=== PATIENT | female | born 1945 | race Asian ===

== ENCOUNTER 2022-07-27 17:23 | Emergency (ER) | payer MEDICARE, OTHER ==
[~2022-07-27] VITALS: Ht 157.5 cm; Wt 59.0 kg
[2022-07-27] MEDS ORDERED: ONDANSETRON ODT 4 MG TAB PO ONE (19:00)
[2022-07-27] MEDS ORDERED: MORPHINE SULFATE 4 MG/ML SYR/VIAL IM ONE (19:00)
[2022-07-27] MEDS ORDERED: BACL10TA PO (19:42)
[2022-07-27 21:14] VITALS: BP 129/63
== END 2022-07-27 21:15 | disposition home or self-care (01) ==
LOC: EDBD 17:23 → ER 17:23
DX: S00.83XA Contusion of other part of head, initial encounter (principal); W18.39XA Other fall on same level, initial encounter; Y93.01 Activity, walking, marching and hiking; Y92.481 Parking lot as the place of occurrence of the external cause; Y99.8 Other external cause status; M54.59 Other low back pain
CPT/HCPCS: 70450; 71250; 72070; 72100; 72125; 74176; 96372; 99285; J2270; Q0162